=== PATIENT | female | born 1955 | race Caucasian/White ===

== ENCOUNTER 2018-07-30 05:10 | Day surgery (SDC) ==
[2018-07-24 14:07] LABS: BASO# 0.04 X1000 (0.0-0.2); BASO% 0.5 % (0.0-0.8); EOS# 0.06 X1000 (0.0-0.7); EOS% 0.8 % (0.0-10.0); HEMATOCRIT 41.8 % (37.0-47.0); HEMOGLOBIN 13.6 g/dL (12.0-16.0); LYMPH# 1.71 X1000 (1.2-3.4); LYMPH% 22.6 % (20.5-51.1); MCH 29.6 PG (27-31); MCHC 32.5 g/dL (33-37); MCV 90.9 FL (81-99); MONO# 0.48 X1000 (0.11-0.59); MONO% 6.3 % (1.7-9.3); MPV 9.5 FL (7.4-10.4); NEUT# 5.28 X1000 (1.4-6.5); NEUT% 69.8 % (42.2-75.2); PLT 263 X1000 (130-400); RDW 12.7 % (11.5-14.5); WBC 7.57 X1000 (4.8-10.8)
--- NOTE | 2018-07-29 14:23 | HISTORY AND PHYSICAL ---
HISTORY OF PRESENT ILLNESS: The patient is a 63-year-old female with a history of long-standing incomplete uterovaginal prolapse. Patient was initially followed by Dr. Kit King for many years and has been seeing a nurse practitioner the recent year or so because of the prolapse. We were asked to evaluate her approximately 6 weeks ago, and on evaluation we went through the animation of her defect and discussed pessary management. She was not interested in pessary management at all. 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 She is wishing to proceed towards definitive surgical intervention. The risks and benefits of supracervical hysterectomy with sacrocolpopexy and mid urethral sling were explained at length. She understands and she is wishing to proceed to surgical intervention. PAST MEDICAL HISTORY: Negative for diabetes, hypertension, or asthma. PAST SURGICAL HISTORY: Positive for breast augmentation and kidney stone removal. She is noted to be a para 3-0-0-3. ALLERGIES: None. CURRENT MEDICATIONS: Valtrex 500 mg 1 p.o. daily. FAMILY HISTORY: Noncontributory. SOCIAL HISTORY: Negative for tobacco and drugs. Occasional ETOH. PHYSICAL EXAMINATION: VITAL SIGNS: BMI is 21.97. HEENT: Normocephalic, atraumatic. PERRLA. EOMI. NECK: No thyromegaly. CV: Regular rate and rhythm without murmur, gallop, or rub. PULMONARY: Clear to auscultation and percussion. ABDOMEN: Soft. : Shows POP-Q stage III prolapse, AA0, BA +3. C is -7 TVL 11; point D is -8. Bp is -2. She has lateral detachment with the left being greater than the right apically. GH is 5, and PB is 4. NEUROLOGIC: Afocal. EXTREMITIES: Without clubbing, cyanosis, or edema. ASSESSMENT AND PLAN: Patient admitted at this time for laparoscopic supracervical hysterectomy with abdominal sacrocolpopexy and mid urethral sling using Obtryx. The risks and benefits were explained at length. She understands and is wishing to proceed. cc: Samuel Treadwell MD
[2018-07-30] MEDS ORDERED: PEPCID ONE (05:53)
[2018-07-30] MEDS ORDERED: LR 1,000 ML ONE ×3 (05:53→11:27)
[2018-07-30] MEDS ORDERED: REGLAN ONE (05:53)
[2018-07-30] MEDS ORDERED: KEFZOL 1 GM/D5W 1 GM/50 ML IVPB ONE (05:53)
[2018-07-30] MEDS ORDERED: DIPRIVAN 1% ONE (06:24)
[2018-07-30] MEDS ORDERED: FENTANYL ONE (06:24)
[2018-07-30] MEDS ORDERED: XYLOCAINE-MPF 2% ONE (06:25)
[2018-07-30] MEDS ORDERED: DECADRON ONE ×2 (06:25→06:35)
[2018-07-30] MEDS ORDERED: ZOFRAN ONE (06:25)
[2018-07-30] MEDS ORDERED: ZEMURON ONE ×2 (06:25→09:44)
[2018-07-30] MEDS ORDERED: SENSORCAINE-MPF 0.5%/EPI 1:200,000 ONE (06:31)
[2018-07-30] MEDS ORDERED: D10W 1,000 ML ONE (06:31)
[2018-07-30] MEDS ORDERED: ROBINUL ONE ×2 (06:38)
[2018-07-30] MEDS ORDERED: VERSED ONE (06:39)
[2018-07-30] MEDS ORDERED: SODIUM CHLORIDE 0.9% ONE (06:43)
--- NOTE | 2018-07-30 06:44 | H&P REVIEW ---
H&P Update H&P Review: H&P was reviewed and patient was examined, No change has occurred in the patient's condition (Pt instructed me to not speak to her significant other. )
[2018-07-30] MEDS ORDERED: QUELICIN (DOSE) ONE (06:49)
[2018-07-30] MEDS ORDERED: TORADOL ONE (07:08)
[2018-07-30 09:02] LABS: URINE SOURCE CATH
[2018-07-30 09:03] LABS: BILIRUBIN URINE NEGATIVE (NEGATIVE); BLOOD URINE NEGATIVE (NEGATIVE); COLOR YELLOW; GLUCOSE URINE NEGATIVE (NEGATIVE); KETONE URINE TRACE mg/dL (NEGATIVE); LEUKOCYTES URINE TRACE (NEGATIVE); NITRITE URINE POSITIVE (NEGATIVE); PH URINE 6.5; PROTEIN URINE NEGATIVE (NEGATIVE); SP GRAVITY URINE 1.021; TURBIDITY URINE CLEAR (CLEAR); UR EPITHELIAL CELLS <10 /HPF (<10); URINE BACTERIA 3+ /HPF; URINE RBC <10 /HPF (<10); URINE WBC <10 /HPF (<10); UROBILINOGEN URINE NORMAL (NORMAL)
[2018-07-30] MEDS ORDERED: LASIX ONE (10:25)
--- NOTE | 2018-07-30 12:10 | OPERATIVE NOTE ---
PROCEDURE DATE: 07/30/2018 PREOPERATIVE DIAGNOSIS: Symptomatic pelvic organ prolapse. POSTOPERATIVE DIAGNOSIS: Symptomatic pelvic organ prolapse. PROCEDURE: 1. DaVinci supracervical hysterectomy. 2. Bilateral salpingectomy. 3. Sacral colpopexy. 4. Mid urethral sling with Obtryx. SURGEON: Samuel Treadwell MD. TRANSPLANT REGISTERED NURSE: Rosalva Funk MD. ESTIMATED BLOOD LOSS: 50 mL. HISTORY: The patient is a 63-year-old female who has been having increasing problems with symptomatic pelvic organ prolapse who was admitted for definitive surgical intervention. OPERATIVE FINDINGS: The patient was found to have POP-Q stage III prolapse with the leading edge BA at +1 with the patient in a supine position and asleep. Bladder was found to be within normal limits with bilateral efflux of urine from both ureters after completion of the procedure. No abnormalities in the bladder. No evidence of any mesh or suture material. DETAILS OF OPERATION: Patient taken to operating room placed supine position after adequate general anesthesia obtained. She was placed in low adjustable stirrups. Her abdomen and vagina were prepped and draped in the usual fashion. A supraumbilical incision was made and a 12 mm port and sheath was introduced through this incision in the abdominal cavity. Pelvic contents were visualized. Therefore, insufflation with CO2 to an intra-abdominal pressure of 14 was performed. Left-sided ports were placed under direct visualization after infiltration with local anesthetic, and then the right-sided ports were placed in a similar fashion with the assistance port in the right upper quadrant. At this time, patient was placed in deep Trendelenburg position. Holloway catheter was placed and EEA sizers were placed within the vagina and the anus. Robot was docked in the usual fashion. Hot scissors in the right hand and the bipolar PK was in the left hand, and the third arm had initially a single-tooth tenaculum. The Dr. Funk began the procedure by grasping the corpus of the uterus with the single-toothed tenaculum, elevating it out of the pelvis. She clamped, cauterized and cut the left mesosalpinx and continued in clamp, cauterize and cut fashion through the remaining portion of the mesosalpinx, the round ligament and then down the cardinal ligament. She then turned our attention towards the right side and again elevated the fallopian tube away from the ovary, clamped, cauterized and cut the mesosalpinx, the round ligament and then down the cardinal ligament in a clamp, cauterize and cut fashion. She then peritonealized anteriorly, dropping the bladder well below the cervical stump. At this time, I then began with our anterior vesicovaginal dissection, opening up the vesicovaginal space to show her the plane of dissection. We then went to the posterior portion of the uterus and I demonstrated the level of amputation of the corpus of the uterus right at the insertion of the uterosacral ligaments and then she completed this portion of the procedure. The corpus of the uterus and tubes were then placed in the appendiceal bed. We turned our attention toward continue with our dissection. She continue with the vesicovaginal dissection down to the level close to the urethrovesical neck. We then turned our attention towards the posterior compartment. Again, I began this dissection to get her in the correct tissue plane and she continued with the dissection down to within approximately 2 cm of the perineal body. We went then went up to the sacral promontory and deviating the descending colon laterally. We lifted the peritoneum above the sacral promontory and dissected this away. We had an area where the L5-S1 disk was. We went just caudal to this position to be at the ligament without going through a disk and we dissected down to the anterior longitudinal ligament with good visualization and no evidence of any vasculature that could be injured with placement of the suture. We then created our tunnel in the typical fashion, paying attention to the ureter along the right-hand side. We trimmed our mesh. We had approximately 7 cm anteriorly and approximately 8 to 9 cm posteriorly. We placed the mesh intra-abdominally and I started our initial suture placement most distal, right at the edge of our dissection. Three sutures of [place]-Kraig were placed. All knots were thrown with an initial surgeon's throw and 4 half throws after this. Dr. Funk then placed another 10 to 12 sutures in the anterior compartment after my initial placement of 3 sutures. All knot arrangements were the same. We then brought the posterior arm down and she continued with suture placement in the most proximal portion, and then I continued with the remaining suture placement in the most distal portion just because of the complexity of knot tying in that area. At this time, the third arm was brought up to the sacral promontory. The EEA sizer was utilized to elevate the vagina, and then 2 sutures were placed through the anterior longitudinal ligament, being careful not to go too deep and to avoid the disk. We easily did this. We trimmed off excessive mesh and we then reperitonealized with the V-Loc suture, at which 95% of the mesh was reapproximated. Copious amounts of irrigation was performed. We closely inspected bowel for injury and then proceeded. On all equipment was removed at this point, and we then brought in the morcellator and a grasper. We morcellated the uterus into 3 to 4 large pieces and then had a few small pieces after this. The uterus was not very large. We then removed the morcellator and used a Dago Lc to close this incision with the 0 Vicryl ligature, closing the fascia in deep layers. We used a Dago Lc to close the 12-mm supraumbilical port as well. Abdomen was deflated of all CO2 and all ports were removed without any difficulty. 4-0 Vicryl ligature was utilized in a subcuticular fashion by Nursing Services and surgical glue was placed to close the skin incisions. Vaginally, I grasped the urethra proximally and distally and injected approximately 8 mL of the same local anesthetic. A sagittal incision was made and Dr. Funk then did the dissection up towards the ischiopubic ramus on each side. She then placed the trocar initially on the left-hand side, going through the stab incision at the ischiopubic ramus and bumping across that area to her finger, which directed the needle out. The mesh was attached to it. It was retracted back through the obturator canal. This was performed on contralateral side in a similar fashion. Holloway catheter had already been removed. Cystoscope was introduced and bladder was filled with 250. Both ureters were effluxing urine. There was no evidence of any abnormalities within the bladder. No evidence of any mesh. Cystoscope was removed and Nikki clamp was placed the mid urethral position. The tape was brought up to Nikki clamp, blue tag was excised and the sheaths were easily removed. There was no tension on the mesh whatsoever. A size 7.8 dilator was easily placed and a puff of urine was visualized. We closely inspected the posterior compartment. Rectal examination was performed. The decision was made not to perform a distal rectal repair just because we had such good coverage with the mesh down in this area. Dr. Funk and I both did this examination and made this decision. So, decision was made to terminate the procedure. The patient was taken out of low adjustable stirrups. Sponge count, instrument count, needle counts correct x3. Packs and drains were Holloway. She was awakened, taken to recovery room vital signs stable. cc: Samuel Treadwell MD
[2018-07-30] MEDS ORDERED: NORCO-5 PO PRN (12:20)
[2018-07-30] MEDS ORDERED: ZOFRAN ODT PO PRN (12:20)
--- NOTE | 2018-07-30 14:58 | PROGRESS NOTE ---
DATE: 07/30/2018 TIME: Approximately 3:40 p.m. SUBJECTIVE: Patient is now approximately 6 hours after a supracervical hysterectomy, sacrocolpopexy, and mid urethral sling. OBJECTIVE: Her incisions are dry. Output is adequate. Vital signs stable. ASSESSMENT AND PLAN: Routine postoperative care. She will undergo voiding trial in the morning, and we will plan on discharge at that time. cc: Samuel Treadwell MD
[2018-07-30] MEDS: TORADOL IV SCH ×2 (15:37→22:08)
[2018-07-30] MEDS: LR 1,000 ML IV SCH ×2 (15:44→20:51)
[2018-07-30] MEDS: PERIDEX MT SCH ×2 (15:50→20:08)
[2018-07-30] MEDS: COLACE PO SCH ×2 (15:51→20:08)
[2018-07-31] MEDS: LR 1,000 ML IV SCH ×2 (05:20→11:30)
[2018-07-31] MEDS: TORADOL IV SCH ×2 (05:21→08:51)
--- NOTE | 2018-07-31 07:21 | DISCHARGE SUMMARY ---
ADMISSION DATE: 07/30/2018 DISCHARGE DATE: 07/31/2018 PRINCIPAL DIAGNOSIS: Pelvic organ prolapse. PROCEDURE: Da Randolph supracervical hysterectomy, abdominal sacrocolpopexy, mid urethral sling with Obtryx. HISTORY: The patient is a 63-year-old female with increasing symptomatic pelvic organ prolapse, admitted for surgical intervention. HOSPITAL COURSE: The patient underwent the above-stated procedure. Blood loss at that time was approximately 25 mL. Postoperative course has been uncomplicated. She is currently undergoing a voiding trial and will be discharged home after completion of this. DISCHARGE MEDICATIONS: Clatonia, Toradol, and Colace. DISCHARGE INSTRUCTIONS: She was instructed on a regular diet and decreased activity. cc: Samuel Treadwell MD
[2018-07-31 07:53] VITALS: BP 98/54
[2018-07-31] MEDS: COLACE PO SCH (08:51)
[2018-07-31] MEDS: PERIDEX MT SCH (08:51)
== END 2018-07-31 15:45 | disposition home or self-care (01) ==
LOC: OR 05:10 → INTOOBSV 12:16 → DIRADM 12:16 → 4N 12:17 → OR 07-31 15:45
PROVIDERS: ATTEND Obstetrics & Gynecology
CPT/HCPCS: 81001; 85025; 87077; 87088; 87186; 88307; 94761; 94799; A9270; C1771; C1781; J0330; J0690; J1100; J1885; J1940; J2250; J2405; J3010; J7120; S2900